=== PATIENT | male | born 1980 | race Caucasian/White ===

== ENCOUNTER 2017-10-14 08:36 | Emergency (ER) | payer OTHER ==
[~2017-10-14] VITALS: Ht 172.7 cm; Wt 181.4 kg
[~2017-10-14 08:36] MED LIST: ACCUNEB SO1.25 MG/1; ACETAMINOPHEN-1 EAC1 PO; APAP500 PO; CARAFATE 1 GM TA1 G1; CARAFATE 1 GM TA1 G1 PO; CIPRO500 MG PO; CIPROFLOXACIN500 M1 PO; CLEOCIN HCL150 MG PO; FLAGYL500 MG PO; FLEXERIL PO; FLOMAX0.4 MG PO; HYDROCHLOROTHIA25 M2 PO; HYDROCODONE-AP1 EAC6 PO; HYDROCODONE-APA1 TA1 PO; IBUPROFEN 800800 M1 PO; KEFLEX500 M1 PO; LOPRESSOR25 PO; MAGIC MOUTHWASH PO; MEDROLDOSEPACK PO; NORCO 10-325 T1 EACH PO; NORCO 5-325 TA1 EAC1 PO; NORCO 5-325 TA1 EACH PO; NORVASC10 MG PO; NORVASC5 MG PO; ONDANSETRON HCL4 M2; ONDANSETRON HCL4 M2 PO; PERCOCET 5-3251 EACH PO; PERCOCET 7.5-31 EACH PO; PERCOCET PO; PROTONIX 20 MG20 M1 PO; PROTONIX40 M1 PO; TAMSULOSIN HCL0.4 MG PO; TESSALON PERLE100 MG PO; TRAMADOL 50 MG50 MG PO; ULTRAM 50MG TAB50 MG PO; ZANTAC 150MG T150 MG PO; ZOFRAN ODT4 MG PO; ZOFRAN4 MG PO; ZPAK PO
[2017-10-14] MEDS ORDERED: BUSPIRONE HCL10 MG PO (08:46)
[2017-10-14] MEDS ORDERED: XANAX 0.5 MG0.5 M1 PO (08:46)
[2017-10-14] MEDS ORDERED: PROZAC20 MG PO (08:46)
[2017-10-14] MEDS ORDERED: LISINOPRIL5 MG PO (08:47)
[2017-10-14] MEDS ORDERED: ASPIR 8181 MG PO (08:47)
[2017-10-14 08:59] LABS: URINE BLOOD NEGATIVE (Negative); URINE CLARITY CLEAR; URINE COLOR YELLOW; URINE GLUCOSE-RANDOM NEGATIVE (Negative); URINE KETONES TRACE (Negative); URINE LEUKOCYTES-REFLEX NEGATIVE (Negative); URINE NITRITE-REFLEX NEGATIVE (Negative); URINE PROTEIN 1+ (Negative); URINE SPECIFIC GRAVITY 1.025 (1.005-1.030); URINE UROBILINOGEN 0.2 E.U./dl (0.2-1.0)
[2017-10-14 09:01] LABS: ICTOTEST (BILI CONFIRMATORY) Negative (Negative); URINE BILIRUBIN 1+ (Negative)
[2017-10-14 09:01] LABS: ABSOLUTE BASOPHILS 0.1 thou/uL (0.0-0.2); ABSOLUTE EOSINOPHILS 0.2 thou/uL (0.0-0.7); ABSOLUTE LYMPHOCYTES 2.4 thou/uL (0.8-5.3); ABSOLUTE MONOCYTES 0.8 thou/uL (0.0-1.2); ABSOLUTE NEUTROPHILS 6.3 thou/uL (1.6-8.1); BASOPHILS 1.1 %; EOSINOPHILS 2.3 %; HEMATOCRIT 43.6 % (42.0-52.0); HEMOGLOBIN 14.7 gm/dL (14.0-18.0); LYMPHOCYTES 24.4 %; MCH 30.6 pg (26.0-34.0); MCHC 33.6 g/dL (28.0-37.0); MONOCYTES 8.5 %; MPV 8.9 fl. (7.2-11.1); NUCLEATED RBCS 0 /100WBC; PLATELET COUNT* 360 thou/uL (150-400); POLYS 63.7 %; RBC 4.79 mil/uL (4.50-6.00); RDW-CV 13.6 % (10.5-14.5); WBC 9.8 thou/uL (4.0-11.0)
[2017-10-14 09:06] LABS: CREATININE 0.9 mg/dL (0.6-1.3)
[2017-10-14 09:11] LABS: ALBUMIN 3.6 g/dL (3.4-5.0); TOTAL BILIRUBIN 0.3 mg/dL (<0.1-1.0); TOTAL PROTEIN 7.7 g/dL (6.4-8.2)
[2017-10-14 10:27] VITALS: BP 110/56
== END 2017-10-14 10:28 | disposition home or self-care (01) ==
LOC: M.ERS 08:36
PROVIDERS: Family Medicine
DX: R10.9 Unspecified abdominal pain (principal); I10 Essential (primary) hypertension; F17.210 Nicotine dependence, cigarettes, uncomplicated; Z87.442 Personal history of urinary calculi; Z88.0 Allergy status to penicillin; Z88.7 Allergy status to serum and vaccine; Z88.8 Allergy status to other drugs, medicaments and biological substances